=== PATIENT | male | born 1930 | race Caucasian/White ===

== ENCOUNTER 2017-06-17 00:07 | Emergency (ER) | payer MEDICARE ==
[2017-06-17 00:51] VITALS: TEMP 98.6
--- NOTE | 2017-06-17 00:54 | C.PDOC ---
History Of Present Illness Patient was brought to the ED by family for evaluation of concerns of pain due to grimacing beginning today. As per patient's son, patient is in home bound hospice for advanced dementia. Patient's son denies vomiting, diarrhea, or fever. Time Seen by Provider: 06/17/17 00:54 Chief Complaint (Nursing): Medical Clearance History Per: Family (patient's son and ) History/Exam Limitations: physical impairment (patient is non verbal ) Onset/Duration Of Symptoms: Hrs Current Symptoms Are (Timing): Still Present Reports Recently: Treated By A Physician Recent travel outside of the [place]: No Past Medical History Reviewed: Historical Data, Nursing Documentation, Vital Signs Vital Signs: Last Vital Signs Temp 98.6 F 06/17/17 00:43 Pulse 84 06/17/17 00:43 Resp 20 06/17/17 00:43 BP 133/70 06/17/17 00:43 Pulse Ox 100 06/17/17 02:41 - Medical History PMH: Alzheimer's Disease, Dementia, HTN, Seizures Surgical History: Carotid Endarterectomy Family History: States: Unknown Family Hx - Social History Hx Alcohol Use: No Hx Substance Use: No - Immunization History Hx Tetanus Toxoid Vaccination: No Hx Influenza Vaccination: No Hx Pneumococcal Vaccination: No Review Of Systems Constitutional: Positive for: Other (Facial grimacing ). Negative for: Fever Respiratory: Negative for: Shortness of Breath Gastrointestinal: Negative for: Vomiting, Diarrhea Physical Exam - Physical Exam Appears: Chronically Ill, Other (patient is non-verbal) Skin: Warm, Dry Head: Atraumatic Eye(s): bilateral: Normal Inspection Oral Mucosa: Moist Neck: Trachea Midline, Supple Chest: Symmetrical, Other (cabg scar) Cardiovascular: Rhythm Regular Respiratory: No Rales, Rhonchi (scattered rhonci bilaterally ), No Wheezing Gastrointestinal/Abdominal: Bowel Sounds (good bowel sounds ), Soft, No Distention Extremity: Capillary Refill (good capillary refill, less than two seconds ), Other (right heel has healing stage 1/2 saccral decubitus ulcer) ED Course And Treatment - Laboratory Results Result Diagrams: 06/17/17 01:13 06/17/17 01:13 ECG: Interpreted By Me, Viewed By Me O2 Sat by Pulse Oximetry: 100 Pulse Ox Interpretation: Normal - Radiology CXR: Interpreted by Me, Viewed By Me CXR Interpretation: Yes: Other (cabg). No: Infiltrates, Fracture, Pnemothorax Disposition Counseled Patient/Family Regarding: Studies Performed, Diagnosis, Need For Followup - Disposition Referrals: Hero Emanuel MD [Medical Doctor] - Disposition: HOME/ ROUTINE Disposition Time: 00:54 Condition: FAIR Instructions: Hyponatremia (DC), Anemia (DC) Forms: [employer] (Tanzanian) - Clinical Impression Clinical Impression: Medical assessment, Hyponatremia - Scribe Statement The provider has reviewed the documentation as recorded by the Scribe Lis White All medical record entries made by the Federicoibe were at my direction and personally dictated by me. I have reviewed the chart and agree that the record accurately reflects my personal performance of the history, physical exam, medical decision making, and the department course for this patient. I have also personally directed, reviewed, and agree with the discharge instructions and disposition.
[2017-06-17] MEDS ORDERED: Sodium Chloride 0.9% 1,000 ML IV SCH (01:15)
[2017-06-17 01:40] LABS: BASO # 0.1 K/uL (0.0-0.2); BASO % 0.6 % (0.0-2.0); EOS % 0.2 % (0.0-4.0); HEMATOCRIT 28.6 % (35.0-51.0); LYMPH # 0.6 K/uL (1.0-4.3); LYMPH % 6.2 % (20.0-40.0); MEAN CORPUSCULAR HEMOGLOBIN 24.1 pg (27.0-31.0); MEAN CORPUSCULAR HGB CONC 32.1 g/dL (33.0-37.0); MEAN PLATELET VOLUME 6.9 fL (7.2-11.7); MONO # 0.7 K/uL (0.0-0.8); MONO % 6.8 % (0.0-10.0); PLATELET COUNT 337 K/uL (130-400); RED CELL DISTRIBUTION WIDTH 19.5 % (11.5-14.5); WHITE BLOOD COUNT 10.4 K/uL (4.8-10.8)
[2017-06-17 01:49] LABS: CHLORIDE 93 mmol/L (98-107)
[2017-06-17 01:50] LABS: POTASSIUM 4.9 mmol/L (3.6-5.2); SODIUM 127 mmol/L (132-148)
[2017-06-17 01:52] LABS: ALB/GLOB RATIO 0.7 (1.0-2.1); ALKALINE PHOSPHATASE 59 U/L (38-126); ALT/SGPT 29 U/L (21-72); AST/SGOT 26 U/L (17-59); BILIRUBIN,TOTAL 0.3 mg/dL (0.2-1.3); BLOOD UREA NITROGEN 14 mg/dL (9-20); CARBON DIOXIDE 27 mmol/L (22-30); GFR AFRICAN-AMERICAN > 60; TOTAL PROTEIN 5.9 g/dL (6.3-8.3)
[2017-06-17 01:53] LABS: CALCIUM 8.2 mg/dl (8.6-10.4); GLUCOSE,RANDOM 124 mg/dL (75-110)
[2017-06-17] MEDS ORDERED: Bacitracin 500 Units/gm Oint Foilpak UD ONE (01:59)
[2017-06-17 02:03] LABS: INR 1.2
[2017-06-17 03:10] LABS: NEUTROPHIL 85 % (50-75); TOTAL CELLS COUNTED 100
[2017-06-17 05:52] VITALS: BP 128/68; PULSE 88; RESP 20; O2SAT 99
--- NOTE | 2017-06-17 12:43 | RAD ---
PROCEDURE: CHEST RADIOGRAPH, 1 VIEW HISTORY: SOB COMPARISON: 11/27/2016 FINDINGS: LUNGS: Clear. PLEURA: No pneumothorax or pleural fluid seen. CARDIOVASCULAR: No radiographic findings to suggest acute or significant cardiovascular disease. Incidental Finding(s): Postoperative changes related to sternotomy. OSSEOUS STRUCTURES: No significant abnormalities. VISUALIZED UPPER ABDOMEN: Normal. OTHER FINDINGS: None. IMPRESSION: No active disease. No acute/significant interval changes. No preliminary report provided by emergency department personnel.
== END 2017-06-17 04:30 | disposition home or self-care (01) ==
LOC: C.ER 00:07
DX: Z00.01 Encounter for general adult medical examination with abnormal findings (principal); E87.6 Hypokalemia; G30.9 Alzheimer's disease, unspecified

== ENCOUNTER 2017-08-28 07:44 | Emergency (ER) | payer MEDICARE ==
[2017-08-28 07:48] VITALS: BMI 14.5
--- NOTE | 2017-08-28 08:29 | C.PDOC ---
Time Seen by Provider: 08/28/17 07:51 Chief Complaint (Nursing): Cardiac Arrest Past Medical History - Medical History PMH: Alzheimer's Disease, Atrial Fibrillation, Dementia, HTN, Pneumonia, Seizures Surgical History: CABG, Carotid Endarterectomy Family History: States: Unknown Family Hx - Social History Hx Alcohol Use: No Hx Substance Use: No - Immunization History Hx Tetanus Toxoid Vaccination: No Hx Influenza Vaccination: No Hx Pneumococcal Vaccination: No Disposition - Disposition Disposition: WITH WITHOUT AUTOPSY Disposition Time: 07:55 Condition: Forms: [email or web address] (Wolof) - Clinical Impression Clinical Impression: Cardiac arrest
--- NOTE | 2017-08-28 08:33 | C.PDOC ---
History Of Present Illness Patient is a 87 year old male, with past medical history of dementia, Alzheimer' s disease, HTN, hospice care, is brought to Emergency Department by EMS. As per family, patient had increased change in breathing, and had increased heart rate. Hospice order overturned by family on scene. As per EMS, patient was found to be in cardiac arrest, ALS protocol was initiated, pt was intubated with 6.5 ET tube, secure approximately at distance of 26cm at the lip. Patient was given 4 of Epi, 1 Bicarb, blood sugar was 98. On arrival to ED, pt was in asystole, 40 mins total downtime. Time Seen by Provider: 08/28/17 07:51 Chief Complaint (Nursing): Cardiac Arrest History Per: EMS, Family Circumstances: Brought To ED By EMS Arrest Witnessed By: Family Treatment Initiated Prior To MD Arrival: Yes: CPR, BVM Ventilations, Intubation - Initial Findings Mentation: Unresponsive Rhythm: Asystole Past Medical History Reviewed: Historical Data, Nursing Documentation, Vital Signs Vital Signs: Last Vital Signs Temp 98.4 F 08/28/17 07:55 Pulse Resp BP Pulse Ox - Medical History PMH: Alzheimer's Disease, Atrial Fibrillation, Dementia, HTN, Pneumonia, Seizures Surgical History: CABG, Carotid Endarterectomy Family History: States: Unknown Family Hx - Social History Hx Alcohol Use: No Hx Substance Use: No - Immunization History Hx Tetanus Toxoid Vaccination: No Hx Influenza Vaccination: No Hx Pneumococcal Vaccination: No Review Of Systems Review Of Systems: ROS cannot be obtained secondary to pt's inabilty to answer questions. Physical Exam - Physical Exam Appears: Non-toxic Skin: No Warm (cool extremities), Dry, Other (multiple decubitus wound) Head: Normacephalic Eye(s): bilateral: Abnormal Pupil (fixed and dilated) Chest: Symmetrical Cardiovascular: No Other (no audible heart sounds) Respiratory: No Rales, No Rhonchi, No Wheezing, Other (breath sounds clear with BVM) Gastrointestinal/Abdominal: Soft Neurological/Psych: Other (Unresponsive) Medical Decision Making Medical Decision Making: Family and hospice nurse present at bedside. Patient's PMD, Dr. Emanuel, was informed. Disposition - Disposition Disposition: WITH WITHOUT AUTOPSY Disposition Time: 07:55 Condition: Forms: [employer] (German) - Clinical Impression Clinical Impression: Cardiac arrest - Scribe Statement The provider has reviewed the documentation as recorded by the Scribe Estela Mathew All medical record entries made by the Scribe were at my direction and personally dictated by me. I have reviewed the chart and agree that the record accurately reflects my personal performance of the history, physical exam, medical decision making, and the department course for this patient. I have also personally directed, reviewed, and agree with the discharge instructions and disposition.
[2017-08-28 10:09] VITALS: TEMP 98.4
== END 2017-08-28 11:28 ==
LOC: C.ER 07:44
DX: I46.9 Cardiac arrest, cause unspecified (principal)